=== PATIENT | female | born 1935 | race Caucasian/White ===

== ENCOUNTER 2019-02-25 15:11 | Inpatient (IN) | payer MEDICARE, OTHER ==
[~2019-02-25] VITALS: Ht 162.6 cm; Wt 51.3 kg
[2019-02-25 17:28] LABS: Urine Bacteria NONE SEEN /hpf (None Seen); Urine Blood Negative /uL (Negative); Urine Specific Gravity 1.013 (1.001-1.035); Urine WBC 1 /hpf (0 - 5)
[2019-02-25] MEDS ORDERED: ONDANSETRON HCL 4 MG/2 ML VIAL IV PRN (19:30)
[2019-02-25] MEDS ORDERED: MORPHINE SULF INJ 2 MG/ML SYRINGE 1ML IV PRN ×2 (19:30)
[2019-02-25] MEDS ORDERED: DOCUSATE SOD 100 MG CAP PO PRN (19:30)
[2019-02-25] MEDS ORDERED: NITROGLYCERIN 0.4 MG SL TAB SL PRN (19:30)
[2019-02-25] MEDS: TORSEMIDE 20 MG TAB PO SCH (20:19)
[2019-02-25] MEDS ORDERED: RIOC1TAB7 PO (21:48)
[2019-02-25 22:00] VITALS: BP_SYST 109; BP_DIAS 71; BP_DIAS 77
--- NOTE | 2019-02-25 22:00 | NUR ---
OPENING NOTE RECEIVED PATIENT FROM ER. ASSUMING ROLE OF CARE OF PATIENT AT THIS TIME. PATIENT SHOWING NO SIGN OF DISTRESS, SHORTNESS OF BREATH, BUT PATIENT STATES PAIN IS 9/10. PATIENT WILL BE MEDICATED PER PAIN PROTOCOL AVAILABLE. PATIENT EDUCATED ON PLAN OF CARE FOR THE NIGHT AND PATIENT VERBALIZED UNDERSTANDING. BED LOWERED, CALL LIGHT WITHIN REACH, AND PATIENT WILL BE ROUNDED ON EVERY HOUR AND NEEDED.
[2019-02-25] MEDS: RIOCIGUAT 2 MG PO SCH (22:08)
[2019-02-25] MEDS: POTASSIUM CHLORIDE 8 MEQ TAB PO SCH (22:08)
[2019-02-25 22:14] LABS: Basophils # (auto) 0.1 uL; Basophils % (auto) 1.2 % (0.0-2.0); Eosinophils # (auto) 0.1 uL; Eosinophils % (auto) 1.1 % (0.0-7.0); Hemoglobin 11.8 g/dL (12.2-16.2); Lymphocytes # (auto) 1.2 uL; Lymphocytes % (auto) 15.3 % (10.0-50.0); Mean Corpuscular Hemoglobin 31.3 pg (28.0-32.0); Mean Corpuscular Hgb Conc. 33.7 g/dL (32.0-36.0); Mean Corpuscular Volume 92.7 fL (80.0-100.0); Monocytes # (auto) 0.9 uL; Monocytes % (auto) 10.9 % (0.0-12.0); Neutrophils # (auto) 5.7 uL; Neutrophils % (auto) 71.5 % (37.0-80.0); Platelet Count (auto) 177 10^3/uL (140-450); Red Blood Cells 3.78 10^6/uL (4.0-5.20); Red Cell Distribution Width 14.3 % (11.8-14.3); White Blood Cell 7.9 10^3/uL (4.4-10.8)
[2019-02-25 22:26] LABS: INR 1.02 (0.9-1.15); Partial Thromboplastin Time 28.4 sec (23.64-32.05)
[2019-02-25 22:29] LABS: Albumin 3.2 g/dL (3.4-5.0); Calcium 8.2 mg/dL (8.5-10.1)
[2019-02-25] MEDS: HYDROcodone-ACET 5/325MG TAB PO PRN (22:29)
[2019-02-25 22:31] LABS: BUN/Creatinine Ratio 26.5; Bilirubin, Total 0.7 mg/dL (0.2-1.0); Total Protein 6.6 g/dL (6.4-8.2)
[2019-02-26 05:00] VITALS: BP 113/51
[2019-02-26 05:34] LABS: Basophils # (auto) 0.1 uL; Eosinophils # (auto) 0.1 uL; Eosinophils % (auto) 1.8 % (0.0-7.0); Hematocrit 36.1 % (36.0-46.0); Lymphocytes # (auto) 1.3 uL; Lymphocytes % (auto) 20.5 % (10.0-50.0); Mean Corpuscular Hemoglobin 31.2 pg (28.0-32.0); Mean Corpuscular Hgb Conc. 33.3 g/dL (32.0-36.0); Mean Corpuscular Volume 93.6 fL (80.0-100.0); Monocytes # (auto) 0.9 uL; Monocytes % (auto) 13.7 % (0.0-12.0); Neutrophils # (auto) 3.9 uL; Nucleated Red Blood Cells % 0.1 %; Platelet Count (auto) 177 10^3/uL (140-450); Red Blood Cells 3.85 10^6/uL (4.0-5.20); Red Cell Distribution Width 14.5 % (11.8-14.3); White Blood Cell 6.3 10^3/uL (4.4-10.8)
[2019-02-26] MEDS: TORSEMIDE 20 MG TAB PO SCH ×2 (05:36→18:00)
[2019-02-26] MEDS: RIOCIGUAT 2 MG PO SCH ×2 (05:36→15:13)
[2019-02-26 05:41] LABS: Partial Thromboplastin Time 29.5 sec (23.64-32.05)
[2019-02-26 05:43] LABS: BUN/Creatinine Ratio 25.2; Calcium 8.3 mg/dL (8.5-10.1)
--- NOTE | 2019-02-26 07:30 | NUR ---
Opening Shift Note Assuming care of patient at this time. Patient is awake and alert x4. Patient denies pain. Patient shows no signs or symptoms of shortness of breath. Instructed patient on the plan of care for today and to call for assistance as needed. Bed is locked and lowered with side rails up x2. Call light within reach. Will continue to round hourly and as needed.
[2019-02-26 09:00] VITALS: BP 111/54
[2019-02-26] MEDS ORDERED: FAMOTIDINE 20 MG TAB PO SCH (10:00)
[2019-02-26] MEDS ORDERED: ASPirin 81 mg TAB PO SCH (10:00)
[2019-02-26] MEDS ORDERED: CLOPIDOGREL BISULFATE 75 MG TAB PO SCH (10:00)
[2019-02-26] MEDS: POTASSIUM CHLORIDE 8 MEQ TAB PO SCH (11:24)
--- NOTE | 2019-02-26 11:59 | NUR ---
NUTRITION CONSULT/ASSESSMENT NOTES Please refer to link notes of nutrition screen form filed under the intervention section of the plan of care for further details. Est. Needs: 1550 kcal to 1800 kcal (30-35 kcal/kgBW), 51 gms to 61 gms pro (1.0-1.2 gms/kgBW). Will continue to monitor pertinent labs and reassess nutrient need prn Thank you for this consult. Addendum: 02/26/19 at [address] Amended: Links added.
[2019-02-26 13:00] VITALS: BP 115/55
[2019-02-26] MEDS: HYDROcodone-ACET 5/325MG TAB PO PRN (15:13)
--- NOTE | 2019-02-26 17:11 | NUR ---
Re: Call to on-call social media intern Page on-call social media intern at this time. Patient is ready to be discharged. Need verification that patient is set up for home health per doctor's orders.
--- NOTE | 2019-02-26 17:17 | NUR ---
Call to [facility] Call to [facility] at this time. Per Robbie, at [facility], patient's home health will resume within 24-48 hours.
--- NOTE | 2019-02-26 17:19 | NUR ---
Call from Tammy, Security Officer Supervisor Call from Tammy Gottlieb at this time. Tammy will fax necessary paperwork over to [employer]. Patient is clear for discharge.
--- NOTE | 2019-02-26 17:22 | NUR ---
I faxed resume home health order to [facility].
[2019-02-26 17:27] VITALS: BP 124/53
--- NOTE | 2019-02-26 17:30 | NUR ---
assessment Patient will need a resumption order for [facility] health on discharge. Addendum: 02/26/19 at 1731 by Darleen ARVIZU Amended: Links added.
--- NOTE | 2019-02-26 17:51 | NUR ---
re-assessment Ss consult resume home health with allegra dodd faxed to [facility] ph: [phone] fx: [phone] per Fay Allegra Dodd has accepted and resumption of service to start in 24-48 hrs. Pt agrees to discharge with [facility]. Addendum: 02/26/19 at 1751 by Darleen Aguilar SS Amended: Links added.
--- NOTE | 2019-02-26 18:00 | NUR ---
Discharge instructions given as ordered. Encourage to follow up with PMD as instructed. All questions and concerns addressed. Patient verbalized understanding. Home medications held in Pharmacy returned to patient. IV removed with catheter intact, pressure dressing applied, vernon catheter removed. Telemetry unit returned to [facility]. Patient taken to vehicle via wheelchair with all personal belongings, accompanied by staff and family member. No distress noted at time of departure. Patient instructed to follow up Dr. Garcia, her primary doctor. Patient instructed to schedule an appointment tomorrow morning as offices are currently closed. Patient says that she has had an echo within the last year and does not want to be prescribed any medication, other than her Dempas, for her CHF.
== END 2019-02-26 18:15 | disposition home health service (06) | DRG 542 ==
LOC: EDBD 15:11 → ER 15:19 → TELE 15:20 → TELE-CENTR 21:35
PROVIDERS: ADMIT Nurse Practitioner Acute Care; ATTEND Family Medicine
DX: M84.451A Pathological fracture, right femur, initial encounter for fracture (principal); I50.33 Acute on chronic diastolic (congestive) heart failure; H40.9 Unspecified glaucoma; I11.0 Hypertensive heart disease with heart failure; I25.10 Atherosclerotic heart disease of native coronary artery without angina pectoris; I27.20 Pulmonary hypertension, unspecified; M81.0 Age-related osteoporosis without current pathological fracture; Z96.641 Presence of right artificial hip joint; Z95.1 Presence of aortocoronary bypass graft; Z95.5 Presence of coronary angioplasty implant and graft; Z88.8 Allergy status to other drugs, medicaments and biological substances
CPT/HCPCS: 36415; 51702; 73502; 80048; 80053; 81001; 84443; 85025; 85610; 85730; 87081; 96374; 96375; G0378; J2405